=== PATIENT | female | born 1950 | race Caucasian/White ===

== ENCOUNTER 2018-07-28 10:55 | Outpatient (CLI) | payer MEDICARE, BC, SELFPAY ==
[2018-07-28 13:03] LABS: Cholesterol 313 mg/dL (50-200); HDL Cholesterol 82 mg/dL (40-60); LDL CHOLESTEROL 204 mg/dL (<100); Triglyceride 100 mg/dL (30-150)
[2018-07-28 13:03] LABS: ALT 12 U/L (12-78); AST 19 U/L (15-37); Albumin 3.8 g/dL (3.4-5.0); Alkaline Phosphatase 77 U/L (46-116); Anion Gap 11.3 mmol/L (3-11); BUN 14 mg/dL (7-18); Bilirubin, Total 0.8 mg/dL (0.2-1.0); CO2 24.7 mmol/L (21.0-32.0); CREATININE 0.83 mg/dL (0.55-1.02); Calcium 8.8 mg/dL (8.5-10.1); Chloride 106 mmol/L (98-107); Glucose 102 mg/dL (70-100); Potassium 4.2 mmol/L (3.5-5.1); Sodium 142 mmol/L (136-145); Total Protein 6.4 g/dL (6.4-8.2)
[2018-07-29 11:34] LABS: Lyme Ab w Rflx to Lyme Confirm Negative
== END 2018-07-28 11:15 ==
PROVIDERS: PCP Family Medicine; Visit Provider Family Medicine
DX: R79.89 Other specified abnormal findings of blood chemistry (principal)
CPT/HCPCS: 80053; 80061; 83721; 86618

== ENCOUNTER 2019-04-11 00:10 | Outpatient (CLI) | payer MEDICARE, BC, SELFPAY ==
--- NOTE | 2019-04-11 15:20 | DI.MAMMO_ITS ---
SYMPTOMS/DIAGNOSIS: SCREENING, Z12.31 MAMMOGRAM: Mammograms were interpreted according to the usual protocol including computer analysis with CAD system, tomosynthesis and C view imaging. The breasts are of moderate density with fairly symmetrical distribution of fibroglandular tissue. No dominant mass or clumped microcalcification is identified in either breast. Current examination is compared with previous examinations including February 2018 and there has been no gross interval change in appearance in comparison with the previous studies. CONCLUSION: No specific evidence of malignancy at this time. Routine screening examinations are suggested at yearly intervals due to the family history of breast carcinoma. Category 1, breast density category B. MQSA ASSESSMENT OF FINDINGS: Negative. Category 1. Patient will receive a letter notifying them of these results. BI-RADS category B. There are scattered areas of fibroglandular density.
== END 2019-04-11 00:30 ==
PROVIDERS: PCP Family Medicine; Visit Provider Family Medicine
DX: Z12.31 Encounter for screening mammogram for malignant neoplasm of breast (principal); Z80.3 Family history of malignant neoplasm of breast
CPT/HCPCS: 77063; 77067

== ENCOUNTER 2019-12-06 12:22 | Outpatient (CLI) | payer MEDICARE, BC, SELFPAY ==
[2019-12-06 14:26] LABS: Anion Gap 11.9 mmol/L (3-11); BUN 14 mg/dL (7-18); CO2 25.1 mmol/L (21.0-32.0); CREATININE 0.93 mg/dL (0.55-1.02); Chloride 102 mmol/L (98-107); Estimated GFR 59.78 (mL/min/1.73m2); Glucose 101 mg/dL (74-106); Potassium 4.2 mmol/L (3.5-5.1); Sodium 139 mmol/L (136-145); TSH 2.64 uIU/mL (0.36-3.74)
== END 2019-12-06 12:42 ==
PROVIDERS: PCP Family Medicine; Visit Provider Family Medicine
DX: F32.9 Major depressive disorder, single episode, unspecified (principal); R53.83 Other fatigue
CPT/HCPCS: 36415; 80048; 84443

== ENCOUNTER 2020-06-13 02:50 | Outpatient (CLI) | payer MEDICARE, BC, SELFPAY ==
--- NOTE | 2020-06-13 15:25 | DI.MAMMO_ITS ---
EXAM: MAMMO SCREENING CLINICAL HISTORY: screening,Z12.39 TECHNIQUE: Mammograms were interpreted according to the usual protocol including computer analysis w [employer] CAD system, tomosynthesis and C-view imaging. COMPARISON: FINDINGS: The breasts moderate density with fairly symmetrical distribution of fibroglandular tissue. No domin ant mass or clumped microcalcification is identified in either breast. The current examination is co mpared with previous examinations including April 2019 and there has been no gross interval change in appearance in comparison with the prior studies. IMPRESSION: No specific evidence of malignancy at this time. Routine screening examinations are suggested at yea rly intervals due to the family history of breast carcinoma. BI-RADS Cat 1 - Negative: Breast Density - Category B - Scattered areas of fibroglandular density:
== END 2020-06-13 03:10 ==
PROVIDERS: PCP Family Medicine; Visit Provider Family Medicine
DX: Z12.31 Encounter for screening mammogram for malignant neoplasm of breast (principal); Z80.3 Family history of malignant neoplasm of breast; R92.2 Inconclusive mammogram
CPT/HCPCS: 77063; 77067

== ENCOUNTER 2021-07-27 17:41 | Emergency (ER) | payer MEDICARE, BC, SELFPAY ==
--- NOTE | 2021-07-27 17:45 | DI.RAD_ITS ---
Exam(s) XR WRIST LT COMPLETE EXAM: XR WRIST LT COMPLETE CLINICAL HISTORY: FOOSH injury R/O Fracture. TECHNIQUE: 2D digital imaging was performed. COMPARISON: No exams were available for comparison FINDINGS: Mildly displaced fracture of the distal radius. This does not appear to violate the radiocarpal join t. Tiny calcific density off the distal aspect the ulnar styloid, possibly not acute. No significan t ulnar variance. No carpal dislocation. IMPRESSION: DATA REPOSITORY: RADIATION DOSE DELIVERED:
[2021-07-27 17:46] VITALS: BP 157/78; PULSE 82; RESP 18; TEMP 36.5; O2SAT 96
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
[2021-07-27] MEDS: Acetaminophen 500 MG TAB PO (17:57)
--- NOTE | 2021-07-27 18:24 | DI.VRAD_ITS ---
PROCEDURE INFORMATION: Exam: XR Left Wrist Exam date and time: 07/27/2021 5:52 PM Age: 70 years old Clinical indication: Other: Foosh injury R/O fracture TECHNIQUE: Imaging protocol: XR Left wrist. Views: 3 or more views. COMPARISON: No relevant prior studies available. FINDINGS: Bones/joints: There is a transverse fracture through the distal radial metaphysis with moderate dorsal angulation but no displacement. There is no accompanying fracture of the ulnar styloid process. Carpal bones remain aligned with the radial articular surface. 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 Soft tissues: Normal. IMPRESSION: Colles fracture of the distal radius. Dictated and Authenticated by: Dayday Mathew MD. Ordering:SHE José MD
== END 2021-07-27 19:35 | disposition home or self-care (01) ==
PROVIDERS: Emergency Provider Registered Nurse Emergency; PCP Nurse Practitioner Family
DX: S52.592A Other fractures of lower end of left radius, initial encounter for closed fracture (principal); W01.0XXA Fall on same level from slipping, tripping and stumbling without subsequent striking against object, initial encounter
CPT/HCPCS: 29125; 99283; 73110

== ENCOUNTER 2021-08-05 14:34 | Outpatient (CLI) | payer MEDICARE, BC, SELFPAY ==
--- NOTE | 2021-08-05 14:30 | DI.RAD_ITS ---
Exam(s) XR WRIST LT LIMITED EXAM: XR WRIST LT LIMITED CLINICAL HISTORY: follow up. TECHNIQUE: 2D digital imaging was performed. COMPARISON: CR,XR XR WRIST LT COMPLETE from 07/27/2021 FINDINGS: There is evidence of healing at the fracture site in the distal radius. Fracture lines are less evid ent. Noted significant displacement. IMPRESSION: DATA REPOSITORY: RADIATION DOSE DELIVERED:
== END 2021-08-05 14:35 | disposition home or self-care (01) ==
LOC: DIORS 14:34
PROVIDERS: PCP Nurse Practitioner Family; Referring Provider Nurse Practitioner Family; Visit Provider Physician Assistant Surgical
DX: S52.592A Other fractures of lower end of left radius, initial encounter for closed fracture; W01.0XXA Fall on same level from slipping, tripping and stumbling without subsequent striking against object, initial encounter
CPT/HCPCS: 29125; 99213; 73100

== ENCOUNTER 2021-09-02 14:26 | Outpatient (CLI) | payer MEDICARE, BC, SELFPAY ==
--- NOTE | 2021-09-02 14:00 | DI.RAD_ITS ---
Exam(s) XR WRIST LT LIMITED EXAM: XR WRIST LT LIMITED CLINICAL HISTORY: F/U L DITAL RADIUS FX. TECHNIQUE: 2D digital imaging was performed. COMPARISON: CR XR WRIST LT LIMITED from 08/05/2021 FINDINGS: Healing transverse fracture of distal radius again noted. Fracture line still evident. No further d isplacement. IMPRESSION: DATA REPOSITORY: RADIATION DOSE DELIVERED:
== END 2021-09-02 14:27 | disposition home or self-care (01) ==
LOC: DIORS 14:26
PROVIDERS: PCP Nurse Practitioner Family; Referring Provider Nurse Practitioner Family; Visit Provider Student in an Organized Health Care Education/Training Program
DX: S52.592D Other fractures of lower end of left radius, subsequent encounter for closed fracture with routine healing (principal); X58.XXXD Exposure to other specified factors, subsequent encounter
CPT/HCPCS: 99213; 73100

== ENCOUNTER 2021-09-28 00:19 | Outpatient (REF) | payer MEDICARE, BC, SELFPAY ==
[2021-09-27 15:40] LABS: COVID-19 RT-PCR UVMMC Result Negative (Negative)
== END 2021-09-28 00:20 | disposition home or self-care (01) ==
LOC: NCHCN 00:19
PROVIDERS: PCP Nurse Practitioner Family; Visit Provider Nurse Practitioner Family
DX: Z20.822 Contact with and (suspected) exposure to COVID-19 (principal)
CPT/HCPCS: U0003

== ENCOUNTER 2021-10-07 14:24 | Outpatient (CLI) | payer MEDICARE, BC, SELFPAY ==
--- NOTE | 2021-10-07 14:15 | DI.RAD_ITS ---
Exam(s) XR WRIST LT LIMITED EXAM: XR WRIST LT LIMITED CLINICAL HISTORY: L wrist fx. TECHNIQUE: 2D digital imaging was performed. COMPARISON: CR XR WRIST LT LIMITED from 09/02/2021 FINDINGS: Two views of the left wrist compared 09/02/2021 Fracture site in the distal radius remains stable with some mild further healing. No further displac ement. No additional fractures evident. IMPRESSION: DATA REPOSITORY: RADIATION DOSE DELIVERED:
== END 2021-10-07 14:25 | disposition home or self-care (01) ==
LOC: DIORS 14:25
PROVIDERS: PCP Nurse Practitioner Family; Referring Provider Nurse Practitioner Family; Visit Provider Student in an Organized Health Care Education/Training Program
DX: S52.592D Other fractures of lower end of left radius, subsequent encounter for closed fracture with routine healing (principal); X58.XXXD Exposure to other specified factors, subsequent encounter
CPT/HCPCS: 99213; 73100

== ENCOUNTER → 2022-07-21 02:28 | Outpatient (CLI) | payer MEDICARE, BC, SELFPAY ==
--- NOTE | 2022-07-21 15:18 | DI.MAMMO_ITS ---
Exam(s) MAMMO SCREENING EXAM: MAMMO SCREENING CLINICAL HISTORY: screening,Z12.39. TECHNIQUE: Bilateral full field digital CC and MLO mammographic images were obtained with 3D tomosyn thesis and utilizing computer aided detection (CAD). COMPARISON: Prior mammograms were reviewed, the most recent being June 2020. FINDINGS: No new significant right breast findings. In the left breast on the MLO view there is and asymmetric density measuring 5 x 5 millimeters locate d 8 cm in from the nipple. Spot compression view and ultrasound recommended. No malignant-appearing microcalcification groups in this region or elsewhere either breast. There is no significant architectural distortion nor skin thickening-retraction. IMPRESSION: 1. No radiographic evidence of malignancy in the right breast. 2. Asymmetric density-possible nodule left breast. Spot compression CC view and ultrasound recommend ed. BI-RADS Category 0 - Assessment Incomplete: Need additional imaging evaluation Breast Density - Category B - Scattered areas of fibroglandular density Breast density Category C or D implies that the patient has dense breast tissue. Dense breast tissue can make it harder to find cancer on a mammogram. Dense breast tissue is also associated with an incr eased risk of breast cancer. This information about the result of the mammogram report was provided to the patient to raise their awareness. Use this report when you speak with the patient about their risks for breast cancer, which includes their family history. At that time, you may recommend additional screening tests (Ultrasoun d or MRI) as these tests may add significant information. A negative radiographic report should not delay biopsy if a dominant or clinically suspicious mass is present. Up to ten percent of cancers are not identified on mammography. A negative report may reinforce clinical impression. Adenosis and dense breasts may obscure an underlying neoplasm. False positive reports average 6 to 10%. Patient will receive a letter notifying them of these results.
== END ==
PROVIDERS: PCP Family Medicine; Visit Provider Nurse Practitioner Family
DX: Z12.31 Encounter for screening mammogram for malignant neoplasm of breast (principal)
CPT/HCPCS: 77063; 77067

== ENCOUNTER → 2022-07-23 01:18 | Outpatient (CLI) | payer MEDICARE, BC, SELFPAY ==
--- NOTE | 2022-07-23 | DI.US_ITS ---
Exam(s) MG MAMMO SCREEN CALL BACK UNI US BREAST LT COMPLETE EXAM: MG MAMMO SCREEN CALL BACK UNI CLINICAL HISTORY: F/U MAMMO, LT ASYMMETRIC DENSITY, ? NODULE. TECHNIQUE: Unilateral spot mammographic images obtained with 3D tomosynthesisand utilizing computer aided detection (CAD). . Complete left breast Ultrasound was also performed, including all 4 quadrants, the retroareolar regio n, and the ipsilateral axilla. COMPARISON: Prior mammograms were reviewed. This additional imaging was performed due to findings described on the recent screening mammogram of 07/21/2022.. FINDINGS: DIAGNOSTIC LEFT BREAST MAMMOGRAM: Additional mammographic views performed todayrender this area somewhat less concerning. COMPLETE LEFT BREAST ULTRASOUND: Ultrasound performed today reveals a solitary finding at the 1 o'clock position which has the appeara nce of a focal 5 x 4 millimeter lipoma or possible small intramammary lymph node. This may or may no t correspond to the finding on the mammogram.. Nevertheless, there are no other focal ultrasound fin dings in all 4 quadrants nor in the retroareolar region. Scanning of the left axilla is negative for adenopathy IMPRESSION: Benign-appearing findings, as described above. Appropriate follow-up , as discussed by myself with the patient today, is repeat left breast imaging in 6 months to include repeat left breast mammogram and ultrasound.. The patient was informed of these findings and recommendations prior to leaving the department today. BI-RADS Category 3 - 6 month - Probably Benign Finding: Recommend follow-up mammography in 6 months Breast Density - Category B - Scattered areas of fibroglandular density Breast density Category C or D implies that the patient has dense breast tissue. Dense breast tissue can make it harder to find cancer on a mammogram. Dense breast tissue is also associated with an incr eased risk of breast cancer. This information about the result of the mammogram report was provided to the patient to raise their awareness. Use this report when you speak with the patient about their risks for breast cancer, which includes their family history. At that time, you may recommend additional screening tests (Ultrasoun d or MRI) as these tests may add significant information. A negative radiographic report should not delay biopsy if a dominant or clinically suspicious mass is present. Up to ten percent of cancers are not identified on mammography. A negative report may reinforce clinical impression. Adenosis and dense breasts may obscure an underlying neoplasm. False positive reports average 6 to 10%. Patient will receive a letter notifying them of these results.
== END ==
PROVIDERS: PCP Family Medicine; Visit Provider Family Medicine
DX: Z12.31 Encounter for screening mammogram for malignant neoplasm of breast (principal); R92.8 Other abnormal and inconclusive findings on diagnostic imaging of breast; D17.79 Benign lipomatous neoplasm of other sites
CPT/HCPCS: 76642; 77063; 77067

== ENCOUNTER 2023-01-28 02:02 | Outpatient (CLI) | payer MEDICARE, BC, SELFPAY ==
--- NOTE | 2023-01-28 13:39 | DI.US_ITS ---
Exam(s) MG MAMMO DIAGNOSTIC UNI US BREAST LT LIMITED EXAM: MG MAMMO DIAGNOSTIC UNI and U/S breast LT limited CLINICAL HISTORY: f/u abnl mammo,6 mo f/u, r92.8,asymmetric density,lipoma or lymph node. TECHNIQUE: Craniocaudal and mediolateral oblique Full Field Digital Mammography views of the left br east with Computer Aided Diagnosis followed by Tomosynthesis and left breast ultrasound. COMPARISON: Comparison is made with prior examinations. FINDINGS: Mammography/Tomosynthesis: Masses/Architectural Distortion: None seen. Microcalcifictions: No suspicious pleomorphic-type are seen. Skin Thickening/Nipple Retraction: None. Limited left breast US: Echotexture: Normal appearance of the glandular tissue. Shadowing: No suspicious foci. Cyst: None. Solid lesions: The solid round echogenic lesion at the 1 o'clock position of the left breast is uncha nged. This likely reflects a small lipoma. Ductal dilation: None. IMPRESSION: 1. No evidence of malignancy is noted. 2. Unless there is more urgent need, follow-up screening mammography is recommended, as per [place] [employer] guidelines. 3. The findings were discussed with the patient on the date of the examination. BI-RADS Category 2 - Benign Findings Breast Density - Category B - Scattered areas of fibroglandular density Breast density Category C or D implies that the patient has dense breast tissue. Dense breast tissue can make it harder to find cancer on a mammogram. Dense breast tissue is also associated with an incr eased risk of breast cancer. This information about the result of the mammogram report was provided to the patient to raise their awareness. Use this report when you speak with the patient about their risks for breast cancer, which includes their family history. At that time, you may recommend additional screening tests (Ultrasoun d or MRI) as these tests may add significant information. A negative radiographic report should not delay biopsy if a dominant or clinically suspicious mass is present. Up to ten percent of cancers are not identified on mammography. A negative report may reinforce clinical impression. Adenosis and dense breasts may obscure an underlying neoplasm. False positive reports average 6 to 10%. Patient will receive a letter notifying them of these results.
== END 2023-01-28 02:22 ==
PROVIDERS: PCP Family Medicine; Visit Provider Nurse Practitioner Family
DX: R92.8 Other abnormal and inconclusive findings on diagnostic imaging of breast (principal); N63.21 Unspecified lump in the left breast, upper outer quadrant; D24.2 Benign neoplasm of left breast
CPT/HCPCS: 76642; 77061; 77065; G0279

== ENCOUNTER → 2024-01-13 04:22 | Outpatient (CLI) | payer MEDICARE, BC, SELFPAY ==
--- NOTE | 2024-01-13 08:15 | DI.MAMMO_ITS ---
Exam(s) MAMMO SCREENING EXAM: MAMMO SCREENING CLINICAL HISTORY: screening,Z12.39 TECHNIQUE: Mammograms were interpreted according to the usual protocol including computer analysis w [employer] CAD system, tomosynthesis and C-view imaging. COMPARISON: No exams were available for comparison FINDINGS: The breasts are composed of scattered fibroglandular densities, Breast Density category B. No suspicious masses or suspicious microcalcifications are seen. No skin thickening or abnormal axillary lymph nodes are seen. There has been no significant change from prior exams. IMPRESSION: BI-RADS Category 1, Negative mammogram Yearly screening mammography is recommended. Breast Density - Category B, scattered fibroglandular densities. A negative radiographic report should not delay biopsy if a dominant or clinically suspicious mass is present. Up to ten percent of cancers are not identified on mammography. A negative report may reinforce clinical impression. Adenosis and dense breasts may obscure an underlying neoplasm. False positive reports average 6 to 10%. Patient will receive a letter notifying them of these results.
== END ==
PROVIDERS: PCP Family Medicine; Visit Provider Family Medicine
DX: Z12.31 Encounter for screening mammogram for malignant neoplasm of breast (principal)
CPT/HCPCS: 77063; 77067

== ENCOUNTER → 2024-03-31 04:30 | Outpatient (CLI) | payer MEDICARE, BC, SELFPAY ==
--- NOTE | 2024-03-31 07:15 | DI.DEXA_ITS ---
Exam(s) XR DEXA BONE DENSITY W/WO RESHMA EXAM: XR DEXA BONE DENSITY W/WO RESHMA CLINICAL HISTORY: screening for osteoporosis, menopausal disorder,n95.9 TECHNIQUE: Routine DEXA evaluation of the lumbar spine, hip, or forearm. COMPARISON: No exams were available for comparison FINDINGS: Performed on a Hologic unit. Lateral image: There appears to be an element of compression fracture seen on the language specialist lateral view in what is probably L2 superior endplate level Lumbar Spine total T-score: -0.8 Hip total T-score:-0.9 Independent reading at the level of the femoral neck yields T-score of -1.7 IMPRESSION: Bone mineral density measures in the osteopenia range. Fracture risk is moderate. On the lateral image there is suggestion of a mild compression fracture of what is probably L2. Mj mmend plain film views of the lumbosacral spinal column as the next step here. Note: Any spine fracture indicates 5x risk for subsequent spine fracture and 2x risk for subsequent h ip fracture. World Health Organization criteria for BMD interpretation classify patients: Normal...... T- Score at or above -1.0 Osteopenic... T- Score between -1.0 and -2.5 Osteoporosis... T-Score at or below -2.5
== END ==
PROVIDERS: PCP Family Medicine; Visit Provider Family Medicine
DX: N95.9 Unspecified menopausal and perimenopausal disorder (principal); Z13.820 Encounter for screening for osteoporosis; M85.89 Other specified disorders of bone density and structure, multiple sites
CPT/HCPCS: 77080

== ENCOUNTER → 2024-04-06 04:20 | Outpatient (CLI) | payer MEDICARE, BC, SELFPAY ==
--- NOTE | 2024-04-06 07:00 | DI.RAD_ITS ---
Exam(s) XR LUMBAR SPINE COMPLETE EXAM: XR LUMBAR SPINE COMPLETE CLINICAL HISTORY: per rad report, COMPRESSION FX L2, OSTEOPENIA, S32.020A, M85.80, Z78.0. TECHNIQUE: 2D digital imaging was performed of the lumbar spine. Five images were obtained. AP, la teral, right oblique, left oblique and L5-S1 spot views were obtained. COMPARISON: CR LUMBAR SPINE COMPLETE from 08/30/2012 CR XR DEXA BONE DENSITY W/WO RESHMA from 03/31/2024 FINDINGS: BONES: No fracture or destructive lesion. There is a compression fracture deformity of L3 seen. Ther e is also superior compression deformity of T12. No new compression fractures are identified. Degen erative changes of the facets are seen at L4-5 and L5-S1. DISKS: Intervertebral disc spaces are maintained. ALIGNMENT: Lumbar spinal alignment is within normal limits. No spondylolysis or spondylolisthesis. SOFT TISSUE: Normal. IMPRESSION: Compression fracture deformities of T12 and L3 of indeterminate age. There is continued clinical con cern, an MRI may be obtained for further evaluation. DATA REPOSITORY: RADIATION DOSE DELIVERED:
== END ==
PROVIDERS: PCP Family Medicine; Visit Provider Family Medicine
DX: S32.020A Wedge compression fracture of second lumbar vertebra, initial encounter for closed fracture (principal); Z78.0 Asymptomatic menopausal state; X58.XXXA Exposure to other specified factors, initial encounter
CPT/HCPCS: 72110

== ENCOUNTER → 2024-05-26 01:57 | Outpatient (CLI) | payer MEDICARE, BC, SELFPAY ==
--- NOTE | 2024-05-26 14:00 | DI.RAD_ITS ---
Exam(s) XR FOOT RT COMPLETE EXAM: XR FOOT RT COMPLETE CLINICAL HISTORY: Rt foot pain,M79.671. TECHNIQUE: 2D digital imaging was performed. Three views. COMPARISON: No exams were available for comparison FINDINGS: BONES: No acute fracture is present. No bony destructive lesion is seen. JOINTS: No dislocation present. Mild hallux valgus. Mild degenerative changes 1st MTP joint. Hamme rtoe deformities, most severe at the 2nd toe which overlaps the 1st toe. Mild degenerative changes a t the talonavicular joint. SOFT TISSUE: Normal. IMPRESSION: Mild hallux valgus. Severe 2nd toe hammertoe deformity. DATA REPOSITORY: RADIATION DOSE DELIVERED:
== END ==
PROVIDERS: PCP Family Medicine; Visit Provider Podiatrist
DX: M79.671 Pain in right foot (principal); M20.11 Hallux valgus (acquired), right foot; M20.41 Other hammer toe(s) (acquired), right foot; M19.071 Primary osteoarthritis, right ankle and foot
CPT/HCPCS: 73630

== ENCOUNTER 2024-06-14 09:27 | Outpatient (CLI) | payer MEDICARE, BC, SELFPAY ==
[2024-06-14 12:36] LABS: Bilirubin Negative (Negative); Blood Trace-intact (Negative); Clarity Clear (Clear); Glucose Negative (Negative); Ketones Negative (Negative); Leukocyte Esterase Negative (Negative); Nitrite Negative (Negative); Specific Gravity 1.015 (1.005-1.025); Urobilinogen 0.2 mg/dL (Up to 0.2); pH 5.5 (5-8)
[2024-06-14 12:47] LABS: Bacteria Negative HPF (Negative); C & S Indicated? No; Casts Negative LPF (Negative); Crystals Negative HPF (Negative); Epithelial Cells Few HPF (Negative); Mucus Negative (Negative); RBC 0-2 HPF (0-2); WBC Negative HPF (0-5)
[2024-06-14 13:04] LABS: ALT 34 U/L (14-59); AST 28 U/L (15-37); Albumin 4.3 g/dL (3.4-5.0); Alkaline Phosphatase 85 U/L (46-116); Anion Gap 10.5 mmol/L (3-11); BUN 15 mg/dL (7-18); Bilirubin, Total 0.87 mg/dL (0.2-1.0); CO2 24.5 mmol/L (21.0-32.0); Calcium 9.8 mg/dL (8.5-10.1); Calculated LDL 235 mg/dL (<100); Chloride 103 mmol/L (98-107); Cholesterol 339 mg/dL (<200); Estimated GFR 59.49 (mL/min/1.73m2); Glucose 116 mg/dL (74-106); HDL Cholesterol 78 mg/dL (40-60); Potassium 4.4 mmol/L (3.5-5.1); Sodium 138 mmol/L (136-145); Total Protein 7.5 g/dL (6.4-8.2); Triglyceride 133 mg/dL (<150)
== END 2024-06-14 09:28 | disposition home or self-care (01) ==
LOC: LOS 09:28
PROVIDERS: PCP Family Medicine; Referring Provider Family Medicine; Visit Provider Family Medicine
DX: Z13.6 Encounter for screening for cardiovascular disorders (principal); Z00.00 Encounter for general adult medical examination without abnormal findings; I10 Essential (primary) hypertension; R30.0 Dysuria
CPT/HCPCS: 36415; 80053; 80061; 81003; 81015

== ENCOUNTER 2024-06-21 11:56 | Emergency (ER) | payer MEDICARE, BC, SELFPAY ==
[2024-06-21 11:59] VITALS: BP 171/93; PULSE 79; RESP 18; TEMP 36.9; O2SAT 97
--- NOTE | 2024-06-21 12:00 | RT.EKG_ITS ---
APPROVED REPORT Exam: Resting ECG Reason for Exam: arm tingling Patient Location: E HR:76 bpm ECG Measurements Heart Rate 76 AXIS TX 185 P 46 QRSd 150 QRS 24 QT 432 T -19 QTc 487 Conclusion Sinus rhythm 76 RBBB no stemi
[2024-06-21 12:06] VITALS: RESP 18
[2024-06-21 12:10] VITALS: BP 171/93; PULSE 79; RESP 18; TEMP 36.9; O2SAT 97
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
--- NOTE | 2024-06-22 09:41 | PDOC.CMACT ---
Date of service: 06/22/24 Time of Service: 09:42
== END 2024-06-21 13:09 | disposition home or self-care (01) ==
PROVIDERS: Emergency Provider Emergency Medicine; PCP Family Medicine
DX: R20.2 Paresthesia of skin (principal); I10 Essential (primary) hypertension
CPT/HCPCS: 93005; 99283; 93010; 99282

== ENCOUNTER 2024-08-12 16:50 | Outpatient (REF) | payer MEDICARE, BC, SELFPAY ==
[2024-08-12 21:44] LABS: Anion Gap 8.3 mmol/L (3-11); BUN 14 mg/dL (7-18); CO2 27.7 mmol/L (21.0-32.0); CREATININE 0.9 mg/dL (0.55-1.02); Calcium 9.4 mg/dL (8.5-10.1); Calculated LDL 98 mg/dL (<100); Chloride 103 mmol/L (98-107); Cholesterol 214 mg/dL (<200); Glucose 99 mg/dL (74-106); HDL Cholesterol 78 mg/dL (40-60); Potassium 3.6 mmol/L (3.5-5.1); Sodium 139 mmol/L (136-145); Triglyceride 191 mg/dL (<150)
== END 2024-08-12 16:51 | disposition home or self-care (01) ==
LOC: LBN 16:50
PROVIDERS: PCP Family Medicine; Visit Provider Family Medicine
DX: Z13.6 Encounter for screening for cardiovascular disorders (principal)
CPT/HCPCS: 80048; 80061

== ENCOUNTER 2025-02-16 01:17 | Outpatient (CLI) | payer MEDICARE, BC, SELFPAY ==
--- NOTE | 2025-02-16 08:15 | DI.RAD_ITS ---
Exam(s) XR LUMBAR SPINE COMPLETE EXAM: XR LUMBAR SPINE COMPLETE CLINICAL HISTORY: new L sided pain, hx compression fx, ACUTE LBP WITH SCIATICA, M54.40. TECHNIQUE: 2D digital imaging was performed. Five views. COMPARISON: CR XR LUMBAR SPINE COMPLETE from 04/06/2024 FINDINGS: BONES: No fracture or destructive lesion. Stable mild compression of the superior endplate of L3. The remain vertebral body heights are maintained. facet hypertrophy identified from L3-4 through L5 -S1. . The SI joints are unremarkable. DISKS: Intervertebral disc spaces are maintained. ALIGNMENT: Lumbar spinal alignment is within normal limits. SOFT TISSUE: Normal. IMPRESSION: Stable L3 compression fracture. No new abnormalities. DATA REPOSITORY: RADIATION DOSE DELIVERED:
--- NOTE | 2025-02-16 12:55 | DI.MAMMO_ITS ---
Exam(s) MAMMO SCREENING EXAM: MAMMO SCREENING CLINICAL HISTORY: screening, Z12.39 TECHNIQUE: Mammograms were interpreted according to the usual protocol including computer analysis w [employer] CAD system, tomosynthesis and C-view imaging. COMPARISON: 2014 through 2023 FINDINGS: The breasts are composed of scattered fibroglandular densities, Breast Density category B. No suspicious masses or suspicious microcalcifications are seen. No skin thickening or abnormal axillary lymph nodes are seen. There has been no significant change from prior exams. IMPRESSION: BI-RADS Category 1, Negative mammogram Yearly screening mammography is recommended. Breast Density - Category B, scattered fibroglandular densities. A negative radiographic report should not delay biopsy if a dominant or clinically suspicious mass is present. Up to ten percent of cancers are not identified on mammography. A negative report may reinforce clinical impression. Adenosis and dense breasts may obscure an underlying neoplasm. False positive reports average 6 to 10%. Patient will receive a letter notifying them of these results.
== END 2025-02-16 01:37 ==
LOC: DI 01:17
PROVIDERS: PCP Family Medicine; Visit Provider Family Medicine
DX: Z12.31 Encounter for screening mammogram for malignant neoplasm of breast (principal); S32.020D Wedge compression fracture of second lumbar vertebra, subsequent encounter for fracture with routine healing; Z87.81 Personal history of (healed) traumatic fracture; X58.XXXD Exposure to other specified factors, subsequent encounter
CPT/HCPCS: 77063; 77067; 72110

== ENCOUNTER 2025-09-01 03:26 | Outpatient (CLI) | payer MEDICARE, BC, SELFPAY ==
[2025-09-01 10:44] LABS: Anion Gap 10.5 mmol/L (3-11); BUN 17 mg/dL (7-18); CO2 27.5 mmol/L (21.0-32.0); Calcium 9.7 mg/dL (8.5-10.1); Chloride 102 mmol/L (98-107); Estimated GFR 76.79 (mL/min/1.73m2); Glucose 124 mg/dL (74-106); Potassium 4.6 mmol/L (3.5-5.1); Sodium 140 mmol/L (136-145); Vitamin D 25 Total 11 ng/mL (30-100)
== END 2025-09-01 03:27 | disposition home or self-care (01) ==
LOC: LBO 03:27
PROVIDERS: PCP Family Medicine; Visit Provider Family Medicine
DX: E55.9 Vitamin D deficiency, unspecified (principal); Z87.81 Personal history of (healed) traumatic fracture; I10 Essential (primary) hypertension
CPT/HCPCS: 36415; 80048; 82306